=== PATIENT | male | born 1980 | race Caucasian/White ===

== ENCOUNTER 2019-06-28 00:48 | Emergency (ER) | payer OTHER ==
[2019-06-28] MEDS ORDERED: NA CHLORIDE 0.9% 1,000 ML ONE ×2 (01:17→01:20)
[2019-06-28] MEDS ORDERED: TETRACAINE HCL 0.5% 4ML OPTH ONE (01:20)
[2019-06-28 01:40] LABS: BUN Blood Urea Nitrogen 18 mg/dL (7-18); Bicarbonate 26 mmol/L (21-32); Glucose Level 114 mg/dL (74-106); Potassium 3.6 mmol/L (3.5-5.1); Sodium Level 142 mmol/L (136-145)
[2019-06-28 01:53] LABS: Basophils % 0.5 % (0-1.3); Hematocrit 42.8 % (39.6-49.0); Lymphocytes % 27.9 % (15.3-44.8); MPV 10.3 fL (7.6-11.3); RBC Red Blood Cell Count 5.04 M/uL (4.33-5.43)
--- NOTE | 2019-06-28 02:10 | EDPHYS ---
Physician Documentation [facility] Name: Rafael Jarvis Age: 38 yrs Sex: Male : 1980 Arrival Date: 06/28/2019 Time: 00:49 Bed 4 Private MD: ANNIE Physician Ricki Robb HPI: 06/27 01:12 This 38 yrs old Male presents to ER via EMS with complaints of Chemical pm1 Exposure. 01:12 Patient presenting with complaint of HCl gas exposure. 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 Another chemical plant released HCl to the outside air and he was exposed to the gas for about 2 minutes. He initially experienced a sore throat and eye irritation. He flushed his eyes with eye wash for 15 minutes at [employer]. No visual changes. He has the sensation of dry eyes bilaterally. Reports that when he was in the EMS vehicle he felt like he could not take in a deep breath, but feels that was the position that he was seated. He has no current shortness of breath or chest pain.. Onset: The symptoms/episode began/occurred just prior to arrival. Severity of symptoms: Pain is currently a 0 / 10. The patient has not experienced similar symptoms in the past. Historical: - Allergies: 00:55 No Known Allergies; mg2 - Home Meds: 00:55 None [Active]; mg2 - PMHx: 00:55 Hyperlipidemia; mg2 - PSHx: 00:55 gastric surgery; lasik sx; Tonsillectomy; mg2 - Immunization history:: Flu vaccine is up to date. - Social history:: Smoking status: Patient denies any tobacco usage or history of. Patient/guardian denies using alcohol, street drugs, IV drugs. ROS: 01:12 Constitutional: Negative for fever, chills, and weight loss. pm1 01:12 Neck: Negative for injury, pain, and swelling, Cardiovascular: Negative for chest pain, palpitations, and edema, Respiratory: Negative for shortness of breath, cough, wheezing, and pleuritic chest pain, Abdomen/GI: Negative for abdominal pain, nausea, vomiting, diarrhea, and constipation, Back: Negative for injury and pain, MS/Extremity: Negative for injury and deformity, Skin: Negative for injury, rash, and discoloration, Neuro: Negative for headache, weakness, numbness, tingling, and seizure. 01:12 Eyes: Positive for dry eye sensation, Negative for blurry vision, pain, vision loss, visual disturbance. 01:12 ENT: Positive for sore throat, Negative for difficulty swallowing, difficulty handling secretions, hoarseness. Exam: 01:12 Constitutional: This is a well developed, well nourished patient who is awake, alert, pm1 and in no acute distress. Head/Face: Normocephalic, atraumatic. 01:12 Chest/axilla: Normal chest wall appearance and motion. Nontender with no deformity. No lesions are appreciated. 01:12 Abdomen/GI: Soft, non-tender. No distension or tympany. No guarding or rebound. No evidence of tenderness throughout. Back: No spinal tenderness. No costovertebral tenderness. Full range of motion. Skin: Warm, dry with normal turgor. Normal color with no rashes, no lesions, and no evidence of cellulitis. MS/ Extremity: Pulses equal, no cyanosis. Neurovascular intact. Full, normal range of motion. 01:12 Eyes: Periorbital structures: appear normal, Pupils: no acute changes, Extraocular movements: no acute changes, Conjunctiva: trace injection to medial aspect of left eye. Lids and lashes: appear normal. 01:12 ENT: Mouth: is normal, Posterior pharynx: is normal, Airway: normal, no evidence of obstruction, patent, erythema, is not appreciated. 01:12 Cardiovascular: Exam negative for acute changes, Rate: normal, Rhythm: regular, Pulses: no pulse deficits are appreciated, Edema: is not appreciated. 01:12 Respiratory: Exam negative for acute changes, accessory muscles, chest pain, respiratory distress, intercostal retractions, shortness of breath, wheezing, tachypnea, Talking without any difficulty. 01:12 Neuro: Exam negative for acute changes, Orientation: is normal, Mentation: is normal, Motor: is normal, Sensation: is normal, Gait: is steady, at a normal pace, without difficulty. 02:03 Eyes: pH of eye 7.0 bilateral. pm1 Vital Signs: 00:50 BP 137 / 88; Pulse 88; Resp 18; Temp 98.4; Pulse Ox 98% on R/A; Weight 124.28 kg; mg2 Height 5 ft. 10 in. (177.80 cm); Pain 0/10; 02:02 BP 136 / 90; Pulse 80; Resp 16; Pulse Ox 99% ; rr5 00:50 Body Mass Index 39.31 (124.28 kg, 177.80 cm) mg2 Visual Acuity: 02:00 Left Eye Visual acuity 20/20, ; Right Eye Visual acuity 20/20, ; Both Eyes Visual rr5 acuity 20/20; Without Lenses; MDM: 00:51 Patient medically screened. pm1 01:51 Data reviewed: vital signs. Data interpreted: Pulse oximetry: on room air is 98 %. pm1 Interpretation: normal. 02:03 Counseling: I had a detailed discussion with the patient and/or guardian regarding: the pm1 historical points, exam findings, and any diagnostic results supporting the discharge/admit diagnosis, lab results, radiology results, the need for outpatient follow up, an opthalmologist, a family practitioner, to return to the emergency department if symptoms worsen or persist or if there are any questions or concerns that arise at home. 06/27 01:01 Order name: CBC with Diff; Complete Time: 01:57 rr5 06/27 01:01 Order name: BMP; Complete Time: 01:57 rr5 06/27 01:01 Order name: Chest Single View XRAY rr5 06/27 01:12 Order name: Visual Acuity; Complete Time: 02:01 pm1 06/27 01:12 Order name: Misc. Order: rubens's lens irrigation with 1L NS to each eye; Complete pm1 Time: 01:23 Administered Medications: 01:20 Drug: Tetracaine Drops 0.5 % 1 drops Route: Ophthalmic; Site: both eyes; mg2 Disposition: 09:03 Co-signature as Attending Physician, Ricki Robb MD I agree with the assessment and keron plan of care. Disposition: 06/28/19 02:09 Discharged to Home. Impression: Toxic effect of unspecified gases, fumes and vapors, accidental (unintentional), Conjunctivitis - chemical. - Condition is Stable. - Discharge Instructions: Chemical Conjunctivitis, Adult. - Work release form, Medication Reconciliation Form, Thank You Letter, Antibiotic Education, Prescription Opioid Use form. - Follow up: Emergency Department; When: As needed; Reason: Worsening of condition. Follow up: Private Physician; When: 2 - 3 days; Reason: Recheck today's complaints, Continuance of care, Re-evaluation by your physician. - Problem is new. - Symptoms have improved. Signatures: Dispatcher [employer] EDMS Ricki Robb MD MD cha Marinas, Patrick, SALES SERVICE EXECUTIVE SALES SERVICE EXECUTIVE pm1 Titus Sanchez RN RN mg2 Jonathan Street RN RN rr5 Corrections: (The following items were deleted from the chart) 02:13 02:09 06/28/2019 02:09 Discharged to Home. Impression: Toxic effect of unspecified pm1 gases, fumes and vapors, accidental (unintentional). Condition is Stable. Forms are Medication Reconciliation Form, Thank You Letter, Antibiotic Education, Prescription Opioid Use. Follow up: Emergency Department; When: As needed; Reason: Worsening of condition. Follow up: Private Physician; When: 2 - 3 days; Reason: Recheck today's complaints, Continuance of care, Re-evaluation by your physician. Problem is new. Symptoms have improved. pm1 02:15 02:13 06/28/2019 02:09 Discharged to Home. Impression: Toxic effect of unspecified pm1 gases, fumes and vapors, accidental (unintentional). Condition is Stable. Forms are Medication Reconciliation Form, Thank You Letter, Antibiotic Education, Prescription Opioid Use. Follow up: Emergency Department; When: As needed; Reason: Worsening of condition. Follow up: Private Physician; When: 2 - 3 days; Reason: Recheck today's complaints, Continuance of care, Re-evaluation by your physician. Problem is new. Symptoms have improved. pm1 02:23 02:15 06/28/2019 02:09 Discharged to Home. Impression: Toxic effect of unspecified rr5 gases, fumes and vapors, accidental (unintentional); Conjunctivitis - chemical. Condition is Stable. Discharge Instructions: Chemical Conjunctivitis, Adult. Forms are Medication Reconciliation Form, Thank You Letter, Antibiotic Education, Prescription Opioid Use, Work release form. Follow up: Emergency Department; When: As needed; Reason: Worsening of condition. Follow up: Private Physician; When: 2 - 3 days; Reason: Recheck today's complaints, Continuance of care, Re-evaluation by your physician. Problem is new. Symptoms have improved. pm1
--- NOTE | 2019-06-28 02:10 | ER ---
Nurse's Notes [facility] Name: Rafael Jarvis Age: 38 yrs Sex: Male : 1980 Arrival Date: 06/28/2019 Time: 00:49 Bed 4 Private MD: Diagnosis: Toxic effect of unspecified gases, fumes and vapors, accidental (unintentional);Conjunctivitis-chemical Presentation: 06/27 00:50 Chief complaint: EMS states: he was at work when he was exposed/ inhaled HCL Anhydrous. mg2 he complained of eye burning, throat irritation and shortness of breath. he has dry cough even before this incident happened. Coronavirus screen: Proceed with normal triage. Patient reports a cough. Patient reports shortness of breath or difficulty breathing. Patient denies measured and/or subjective temperature greater than 100.4F prior to today's visit. Patient denies travel on a cruise ship or to a country the [facility] currently lists as an affected area. Patient denies contact with known and/or suspected case of COVID-19. Ebola Screen: No symptoms or risks identified at this time. Initial Sepsis Screen: Does the patient meet any 2 criteria? No. Patient's initial sepsis screen is negative. Does the patient have a suspected source of infection? No. Patient's initial sepsis screen is negative. Risk Assessment: Do you want to hurt yourself or someone else? Patient reports no desire to harm self or others. Onset of symptoms was June 28, 2019. 00:50 Method Of Arrival: EMS[facility] [place] 00:50 Acuity: NATHAN 3 mg2 Historical: - Allergies: 00:55 No Known Allergies; mg2 - Home Meds: 00:55 None [Active]; mg2 - PMHx: 00:55 Hyperlipidemia; mg2 - PSHx: 00:55 gastric surgery; lasik sx; Tonsillectomy; mg2 - Immunization history:: Flu vaccine is up to date. - Social history:: Smoking status: Patient denies any tobacco usage or history of. Patient/guardian denies using alcohol, street drugs, IV drugs. Screenin:50 Abuse screen: Denies threats or abuse. Denies injuries from another. Nutritional rr5 screening: No deficits noted. Tuberculosis screening: No symptoms or risk factors identified. Fall Risk None identified. Total Duran Fall Scale indicates No Risk (0-24 pts). Assessment: 00:50 General: Appears in no apparent distress. comfortable, Behavior is calm, cooperative, rr5 appropriate for age. Pain: Denies pain. Neuro: Level of Consciousness is awake, alert, obeys commands, Oriented to person, place, time, situation. Cardiovascular: Capillary refill < 3 seconds Patient's skin is warm and dry. Respiratory: Reports shortness of breath at rest throat irritation Airway is patent Respiratory effort is even, unlabored, Respiratory pattern is regular, symmetrical. GI: No signs and/or symptoms were reported involving the gastrointestinal system. : No signs and/or symptoms were reported regarding the genitourinary system. EENT: Reports eye irritation. Derm: Skin is intact, is healthy with good turgor, Skin temperature is warm. Musculoskeletal: Circulation, motion, and sensation intact. Capillary refill < 3 seconds. 01:15 Reassessment: Poison Control Case # [id number]- Mr. Dony Joshi advised to do basic lab mg2 work, crx, eye irrigation with Nacl for 45 min, visual acuity and optha consult. 02:22 Reassessment: Patient appears in no apparent distress at this time. Patient is alert, rr5 oriented x 3, equal unlabored respirations, skin warm/dry/pink. discharge instruction given and explained without complaints made. Patient states feeling better. Patient states symptoms have improved. Vital Signs: 00:50 BP 137 / 88; Pulse 88; Resp 18; Temp 98.4; Pulse Ox 98% on R/A; Weight 124.28 kg; mg2 Height 5 ft. 10 in. (177.80 cm); Pain 0/10; 02:02 BP 136 / 90; Pulse 80; Resp 16; Pulse Ox 99% ; rr5 00:50 Body Mass Index 39.31 (124.28 kg, 177.80 cm) mg2 Visual Acuity: 02:00 Left Eye Visual acuity 20/20, ; Right Eye Visual acuity 20/20, ; Both Eyes Visual rr5 acuity 20/20; Without Lenses; ED Course: 00:49 Patient arrived in ED. ds1 00:50 Titus Sanchez RN is Primary Nurse. mg2 00:50 Brendan Tejeda NP is PHCP. pm1 00:50 Ricki Robb MD is Attending Physician. pm1 00:50 Patient has correct armband on for positive identification. Placed in gown. Bed in low rr5 position. Call light in reach. Pulse ox on. NIBP on. 00:51 Warm blanket given. rr5 00:54 Triage completed. mg2 00:55 No provider procedures requiring assistance completed. mg2 01:18 Chest Single View XRAY In Process Unspecified. EDMS 01:24 Arm band placed on. mg2 01:24 Inserted saline lock: 20 gauge in left antecubital area, using aseptic technique. Blood mg2 collected. by TABATHA Castillo. 02:22 IV discontinued, intact, bleeding controlled, No redness/swelling at site. Pressure rr5 dressing applied. Administered Medications: 01:20 Drug: Tetracaine Drops 0.5 % 1 drops Route: Ophthalmic; Site: both eyes; mg2 Outcome: 02:09 Discharge ordered by . pm1 02:22 Discharged to home ambulatory. rr5 02:22 Condition: stable 02:22 Discharge instructions given to patient, Instructed on discharge instructions, follow up and referral plans. Demonstrated understanding of instructions, follow-up care. 02:23 Patient left the ED. rr5 Signatures: Dispatcher [employer] EDCT SernaDorina gage ds1 Brendan Tejeda, BENTLEY ASSISTANT [employer]UDENTS pm1 Titus Sanchez RN RN mg2 Jonathan Street RN RN rr5
[2019-06-28 02:30] VITALS: TEMP 98.4
[2019-06-28 02:32] VITALS: BP 136/90; O2SAT 99
--- NOTE | 2019-06-28 08:33 | RAD REPORT ---
EXAM DESCRIPTION: RAD - Chest Single View - 06/28/2019 1:18 am CLINICAL HISTORY: chemical exposure Chest pain. COMPARISON: No comparisons FINDINGS: Portable technique limits examination quality. The lungs are grossly clear. The heart is normal in size. No displaced fractures. IMPRESSION: No acute intrathoracic process suspected.
== END 2019-06-28 02:23 | disposition home or self-care (01) ==
LOC: ER 00:48
DX: T59.91XA Toxic effect of unspecified gases, fumes and vapors, accidental (unintentional), initial encounter (principal); H10.213 Acute toxic conjunctivitis, bilateral; Y92.69 Other specified industrial and construction area as the place of occurrence of the external cause
CPT/HCPCS: 36415; 71045; 80048; 85025; 99284; J7030